=== PATIENT | male | born 1935 | race Caucasian/White ===

== ENCOUNTER 2021-07-31 02:40 | Emergency (ER) | payer MEDICARE, OTHER ==
[~2021-07-31] VITALS: Ht 177.8 cm; Wt 72.6 kg
--- NOTE | 2021-07-31 02:50 | NUR ---
Pt bib RA from [facility]. Pt has bleeding laceration on rt. eyebrow, left elbow, and rt. hand from unwitnessed fall that occurred today. Pt. had dried blood coating and encrusted in his eyebrows, olea, and face. Pt is aox2.
[2021-07-31] MEDS ORDERED: LIDOCAINE 2%-EPI 1:100,000 20 ML VIAL IJ ONE (03:15)
--- NOTE | 2021-07-31 03:15 | NUR ---
Pts daughter is at the bedside. Pts daughter reports he is a hospice patient and is DNR.
[2021-07-31] MEDS ORDERED: LIDOCAINE 2%-EPI 1:100,000 20 ML VIAL ONE (03:16)
--- NOTE | 2021-07-31 03:50 | NUR ---
Pt taken to ct
--- NOTE | 2021-07-31 04:30 | NUR ---
Pt returned from CT. Wounds cleaned, steri strips applied to skin tears on hands.
--- NOTE | 2021-07-31 04:56 | NUR ---
Patient discharged home to daughter in stable condition. Written and verbal after care instructions given to daughter. Patient's daughter verbalizes understanding of instructions. Stressed follow up or return to ER for worsening s/s.
[2021-07-31 05:12] VITALS: BP 139/69
== END 2021-07-31 05:14 ==
LOC: ER 02:50
DX: S09.90XA Unspecified injury of head, initial encounter (principal); S01.111A Laceration without foreign body of right eyelid and periocular area, initial encounter; S51.012A Laceration without foreign body of left elbow, initial encounter; W18.30XA Fall on same level, unspecified, initial encounter; Y92.099 Unspecified place in other non-institutional residence as the place of occurrence of the external cause; F03.90 Unspecified dementia, unspecified severity, without behavioral disturbance, psychotic disturbance, mood disturbance, and anxiety; E78.5 Hyperlipidemia, unspecified; Z88.0 Allergy status to penicillin; Z91.018 Allergy to other foods
CPT/HCPCS: 70450; A4663